=== PATIENT | male | born 1980 | race Caucasian/White ===

== ENCOUNTER 2017-12-18 15:50 | Emergency (ER) | payer BC ==
[~2017-12-18] VITALS: Wt 74.8 kg
[~2017-12-18 15:50] MED LIST: ANTIVERT/2525 MG PO; AUGMENTIN 875875 MG PO; FLONASE 0.05% 121 EA NAS
[2017-12-18] MEDS ORDERED: PREDNISONE10 MG PO (16:04)
[2017-12-18] MEDS ORDERED: CLARITIN10 MG PO (16:04)
[2017-12-18] MEDS ORDERED: ROBITUSSIN DM 105 ML PO (16:04)
[2017-12-18] MEDS ORDERED: FLONASE ALLERG9.9 ML NAS (16:04)
== END 2017-12-18 16:54 | disposition home or self-care (01) ==
LOC: ED 15:50
DX: J20.9 Acute bronchitis, unspecified (principal); R03.0 Elevated blood-pressure reading, without diagnosis of hypertension; F17.200 Nicotine dependence, unspecified, uncomplicated; Z79.899 Other long term (current) drug therapy

== ENCOUNTER 2018-05-20 09:52 | Emergency (ER) | payer BC ==
[~2018-05-20] VITALS: Ht 175.2 cm; Wt 77.1 kg
[~2018-05-20 09:52] MED LIST changes: +CLARITIN10 MG PO; +FLONASE ALLERG9.9 ML NAS; +PREDNISONE10 MG PO; +ROBITUSSIN DM 105 ML PO
[2018-05-20] MEDS ORDERED: METOPROLOL SUCC25 M2 PO (11:57)
== END 2018-05-20 13:03 | disposition home or self-care (01) ==
LOC: ED 09:52
DX: I10 Essential (primary) hypertension (principal); F17.200 Nicotine dependence, unspecified, uncomplicated; Z79.899 Other long term (current) drug therapy

== ENCOUNTER 2021-08-18 11:57 | Emergency (ER) | payer BC ==
[~2021-08-18] VITALS: Ht 175.2 cm; Wt 77.1 kg
[~2021-08-18 11:57] MED LIST changes: +METOPROLOL SUCC25 M2 PO
[2021-08-18 13:43] LABS: HEMATOCRIT 44.4 % (42.0-52.0); MEAN CELL VOLUME 91.2 fl (80.0-94.0); MEAN CORPUSCULAR HGB 30.2 pg (27.0-31.0); MEAN CORPUSCULAR HGB CONC 33.1 g/dl (33.0-37.0); MEAN PLATELET VOLUME 8.3 fl (9.6-12.3); PLATELET COUNT AUTOMATED 402 10*3/uL (130-400); RED BLOOD COUNT 4.87 10*6/uL (4.50-5.90); WHITE BLOOD COUNT 17.2 10*3/uL (4.8-10.8)
[2021-08-18 13:55] LABS: ALKALINE PHOSPHATASE 75 U/L (45-117); BUN 12 mg/dl (7-24); CHLORIDE 105 mmol/L (98-107); CREATININE 0.73 mg/dL (0.70-1.30); LIPASE 53 U/L (73-393); SGOT/AST 20 IU/L (3-35); SGPT/ALT 37 U/L (12-78); SODIUM 136 mmol/L (136-145); TOTAL PROTEIN 8.2 gm/dL (6.4-8.2)
[2021-08-18 14:01] LABS: BASOPHILS 3 % (0-1); TOTAL CELLS COUNTED 100 #CELLS
[2021-08-18 14:02] LABS: PLATELET SUFFICIENCY HIGH (NORMAL)
[2021-08-18] MEDS ORDERED: METOPROLOL SUCC25 M2 PO (14:49)
[2021-08-18 14:58] LABS: BILIRUBIN Negative (Negative); BLOOD Negative (Negative); CLARITY Cloudy (Clear); COLOR Yellow (Yellow); GLUCOSE Negative (Negative); KETONE Negative (Negative); LEUKO ESTERASE 1+ (Negative); NITRITE Negative (Negative); SPECIFIC GRAVITY >= 1.030 (1.001-1.030); UROBILINOGEN 0.2 E.U./dl (0.0-1.0)
[2021-08-18 15:10] LABS: BACTERIA 3+; EPITHELIAL CELLS 0-2; MUCOUS TRACE; WBC 16-20 wbc/hpf (0-5)
[2021-08-18] MEDS ORDERED: METRONIDAZOLE500 M1 PO (16:18)
[2021-08-18] MEDS ORDERED: HYDROCODONE-AC1 EAC1 PO (16:18)
[2021-08-18] MEDS ORDERED: CIPRO500 MG PO (16:18)
== END 2021-08-18 16:25 | disposition home or self-care (01) ==
LOC: ED 11:57
PROVIDERS: Physician Assistant
DX: K57.32 Diverticulitis of large intestine without perforation or abscess without bleeding (principal); Z79.899 Other long term (current) drug therapy

== ENCOUNTER 2024-06-13 08:30 | Emergency (ER) | payer BC ==
[~2024-06-13] VITALS: Ht 175.2 cm; Wt 77.1 kg
[~2024-06-13 08:30] MED LIST changes: +CIPRO500 MG PO; +HYDROCODONE-AC1 EAC1 PO; +METRONIDAZOLE500 M1 PO
[2024-06-13] MEDS ORDERED: MORPHINE Sulfate 2 MG/ML SYR IV ONE (09:40)
[2024-06-13] MEDS ORDERED: Ondansetron Hydrochloride 4 MG/2 ML VIAL IV ONE (09:40)
[2024-06-13] MEDS ORDERED: SODIUM CHLORIDE 0.9% 1,000 ML IV ONE (09:40)
[2024-06-13] MEDS ORDERED: IOHEXOL 300 MG/ML 100 ML VIAL IV ONE (09:45)
[2024-06-13 10:04] LABS: BASO # 0.1 10*3/uL (0.0-0.1); BASO % 1.1 % (0.0-1.0); EOS # 0.3 10*3/uL (0.0-0.4); EOS % 2.9 % (1.0-4.0); HEMATOCRIT 42.5 % (42.0-52.0); LYMPH # 2.6 10*3/uL (1.3-4.4); LYMPH % 26.3 % (27.0-41.0); MEAN CELL VOLUME 91.2 fl (80.0-94.0); MEAN CORPUSCULAR HGB 30.5 pg (27.0-31.0); MEAN CORPUSCULAR HGB CONC 33.4 g/dl (33.0-37.0); MEAN PLATELET VOLUME 8.2 fl (9.6-12.3); MONO # 0.9 10*3/uL (0.1-1.0); MONO % 9.5 % (3.0-9.0); NEUT # 5.9 10*3/uL (2.3-7.9); NEUT % 59.8 % (47.0-73.0); PLATELET COUNT AUTOMATED 515 10*3/uL (130-400); RED BLOOD COUNT 4.66 10*6/uL (4.50-5.90); RED CELL DISTRI WIDTH 12.2 % (0-14.5); WHITE BLOOD COUNT 9.9 10*3/uL (4.8-10.8)
[2024-06-13 10:41] LABS: ALKALINE PHOSPHATASE 67 U/L (46-116); BUN 8 mg/dl (9-23); CHLORIDE 106 mmol/L (98-107); LIPASE 32 U/L (12-53); POTASSIUM 4.3 mmol/L (3.4-5.1); SGPT/ALT 32 U/L (5-49); TOTAL PROTEIN 7.9 gm/dL (6.0-8.0)
[2024-06-13 10:54] LABS: BILIRUBIN Negative (Negative); BLOOD Negative (Negative); CLARITY Clear (Clear); COLOR Yellow (Yellow); GLUCOSE Negative (Negative); KETONE Negative (Negative); LEUKO ESTERASE 2+ (Negative); NITRITE Positive (Negative); SPECIFIC GRAVITY 1.015 (1.001-1.030); UROBILINOGEN 0.2 E.U./dl (0.0-1.0)
[2024-06-13 11:15] LABS: BACTERIA 4+; WBC 41-50 wbc/hpf (0-5)
[2024-06-13] MEDS ORDERED: METRONIDAZOLE500 M1 PO (12:35)
[2024-06-13] MEDS ORDERED: CIPRO500 MG PO (12:35)
== END 2024-06-13 12:55 | disposition home or self-care (01) ==
LOC: ED 08:30
PROVIDERS: Internal Medicine
DX: K52.9 Noninfective gastroenteritis and colitis, unspecified (principal); N30.90 Cystitis, unspecified without hematuria; R11.2 Nausea with vomiting, unspecified; I10 Essential (primary) hypertension; Z98.890 Other specified postprocedural states

== ENCOUNTER 2025-02-18 11:18 | Emergency (ER) | payer BC ==
[~2025-02-18] VITALS: Ht 175.2 cm; Wt 77.1 kg
[2025-02-18] MEDS ORDERED: SODIUM CHLORIDE 0.9% 1,000 ML IV ONE (11:40)
[2025-02-18] MEDS ORDERED: MORPHINE Sulfate 2 MG/ML SYR IV ONE (11:40)
[2025-02-18] MEDS ORDERED: Ondansetron Hydrochloride 4 MG/2 ML VIAL IV ONE (11:40)
[2025-02-18 11:55] LABS: BASO # 0.1 10*3/uL (0.0-0.1); BASO % 0.7 % (0.0-1.0); EOS # 0.1 10*3/uL (0.0-0.4); HEMATOCRIT 40.8 % (42.0-52.0); MEAN CELL VOLUME 90.5 fl (80.0-94.0); MEAN CORPUSCULAR HGB 30.6 pg (27.0-31.0); MEAN CORPUSCULAR HGB CONC 33.8 g/dl (33.0-37.0); MEAN PLATELET VOLUME 8.5 fl (9.6-12.3); MONO # 1.3 10*3/uL (0.1-1.0); MONO % 8.5 % (3.0-9.0); NEUT % 74.7 % (47.0-73.0); PLATELET COUNT AUTOMATED 363 10*3/uL (130-400); RED BLOOD COUNT 4.51 10*6/uL (4.50-5.90); WHITE BLOOD COUNT 14.7 10*3/uL (4.8-10.8)
[2025-02-18 12:13] LABS: BUN 8 mg/dl (9-23); CHLORIDE 104 mmol/L (98-107); LIPASE 31 U/L (12-53); POTASSIUM 4.2 mmol/L (3.4-5.1)
[2025-02-18] MEDS ORDERED: Ciprofloxacin Hydrochloride 500 MG TAB PO ONE (12:50)
[2025-02-18] MEDS ORDERED: metroNIDAZOLE 500 MG TAB PO ONE (12:50)
[2025-02-18] MEDS ORDERED: PERCOCET 5-3251 EACH PO (12:59)
[2025-02-18] MEDS ORDERED: CIPRO500 MG PO (12:59)
[2025-02-18] MEDS ORDERED: METRONIDAZOLE500 M1 PO (12:59)
== END 2025-02-18 13:26 | disposition home or self-care (01) ==
LOC: ED 11:18
PROVIDERS: Emergency Medicine
DX: K52.9 Noninfective gastroenteritis and colitis, unspecified (principal); Z79.899 Other long term (current) drug therapy